=== PATIENT | female | born 1955 | race Caucasian/White ===

== ENCOUNTER → 2017-02-06 | Outpatient (CLI) | payer BC | LOC: MAMO 14:30 | DX: Z12.31 Encounter for screening mammogram for malignant neoplasm of breast (principal); Z85.3 Personal history of malignant neoplasm of breast | CPT/HCPCS: G0202 ==

== ENCOUNTER → 2020-07-30 | Outpatient (CLI) | payer BC ==
[~2020-07-30] MED LIST: FIBER TABLETS PO; LOSARTAN POTASS50 MG PO; METOPROLOL SUCC50 MG PO; SYNTHROID150 MCG PO; TOPROL XL 50 MG50 MG PO; VITAMIN D31250 MCG PO
== END ==
LOC: MAMO 07:40
DX: Z12.31 Encounter for screening mammogram for malignant neoplasm of breast (principal)
CPT/HCPCS: 77063; 77067

== ENCOUNTER → 2020-08-20 | Day surgery (SDC) | payer BC | END | disposition home or self-care (01) | LOC: OR 10:48 | PROVIDERS: Internal Medicine Gastroenterology | PROC: 0DBL8ZX Excision of Transverse Colon, Via Natural or Artificial Opening Endoscopic, Diagnostic (ICD-10-PCS; 2020-08-20) | PROC: 0DBP8ZX Excision of Rectum, Via Natural or Artificial Opening Endoscopic, Diagnostic (ICD-10-PCS; principal; 2020-08-20 12:00) | DX: K57.30 Diverticulosis of large intestine without perforation or abscess without bleeding (principal); D12.3 Benign neoplasm of transverse colon; K64.1 Second degree hemorrhoids; K62.1 Rectal polyp; K64.4 Residual hemorrhoidal skin tags; I10 Essential (primary) hypertension; E03.9 Hypothyroidism, unspecified; E66.01 Morbid (severe) obesity due to excess calories; Z68.38 Body mass index [BMI] 38.0-38.9, adult; Z88.0 Allergy status to penicillin; Z88.2 Allergy status to sulfonamides; Z79.899 Other long term (current) drug therapy; Z20.822 Contact with and (suspected) exposure to COVID-19 | CPT/HCPCS: J2704; J7040; U0003 ==

== ENCOUNTER 2021-02-06 17:12 | Emergency (ER) | payer BC ==
[~2021-02-06] VITALS: Ht 157.5 cm; Wt 99.8 kg
== END 2021-02-06 20:29 | disposition home or self-care (01) ==
LOC: ER1 17:12
DX: Z23 Encounter for immunization (principal); U07.1 COVID-19; E03.9 Hypothyroidism, unspecified; Z88.0 Allergy status to penicillin; Z88.1 Allergy status to other antibiotic agents
CPT/HCPCS: 99282; M0243

== ENCOUNTER → 2021-08-22 | Outpatient (CLI) | payer BC, MEDICARE ==
[~2021-08-22] VITALS: Ht 157.5 cm; Wt 99.8 kg
== END ==
LOC: EROP 12:00
DX: U07.1 COVID-19 (principal); I12.9 Hypertensive chronic kidney disease with stage 1 through stage 4 chronic kidney disease, or unspecified chronic kidney disease; N18.9 Chronic kidney disease, unspecified; Z23 Encounter for immunization; Z88.0 Allergy status to penicillin; Z88.2 Allergy status to sulfonamides
CPT/HCPCS: M0247; Q0247

== ENCOUNTER → 2021-09-07 | Outpatient (CLI) | payer BC, MEDICARE ==
[2021-09-07 14:09] LABS: HEMOGLOBIN 13.1 gm/dl (12.3-15.3); RED BLOOD COUNT 3.99 M/UL (4.00-5.10); WHITE BLOOD COUNT 8.5 K/UL (4.5-11.0)
[2021-09-08 11:17] LABS: CREATININE, URINE 36.8 mg/dL (Not Estab.); MICROALB/CREAT RATIO <8 (0-29)
[2021-09-08 12:11] LABS: ANTISTREPTOLYSIN O AB <20.0 IU/mL (0.0-200.0); RHEUMATOID ARTHRITIS FACTOR <10.0 IU/mL (<14.0)
[2021-09-08 15:12] LABS: CK-BB 0 % (0); CK-MB 0 % (0-3); CK-MM 100 % (97-100); MACRO TYPE 1 0 % (Not Observed); MACRO TYPE 2 0 % (Not Observed)
[2021-09-09 05:09] LABS: IMMUNOGLOBULIN G, QN, SERUM 1019 mg/dL (586-1602)
== END ==
LOC: LAB 13:17
PROVIDERS: Nurse Practitioner Family
DX: M25.50 Pain in unspecified joint (principal); E78.5 Hyperlipidemia, unspecified; R53.83 Other fatigue; Z00.00 Encounter for general adult medical examination without abnormal findings; I10 Essential (primary) hypertension; R06.02 Shortness of breath
CPT/HCPCS: 36415; 80053; 81001; 82043; 82550; 82552; 82570; 82784; 82787; 83880; 84484; 84550; 85025; 85379; 85652; 86038; 86060; 86140; 86403; 86431

== ENCOUNTER → 2021-09-09 | Outpatient (CLI) | payer BC, MEDICARE | LOC: MAMO 08-26 13:00 | DX: Z12.31 Encounter for screening mammogram for malignant neoplasm of breast (principal) | CPT/HCPCS: 77063; 77067 ==

== ENCOUNTER → 2021-09-19 | Outpatient (CLI) | payer BC, MEDICARE | LOC: CT 08:10 | DX: R06.02 Shortness of breath (principal); R79.89 Other specified abnormal findings of blood chemistry; J98.11 Atelectasis | CPT/HCPCS: 71275; Q9967 ==

== ENCOUNTER → 2021-10-07 | Outpatient (CLI) | payer BC, MEDICARE | LOC: HEART 5 09:17 | DX: U07.1 COVID-19 (principal); U09.9 Post COVID-19 condition, unspecified; R06.02 Shortness of breath | CPT/HCPCS: 94010; 94729 ==

== ENCOUNTER → 2021-10-14 | Outpatient (CLI) | payer BC, MEDICARE | LOC: ECHO 09-30 12:00 → NM 09-30 13:00 → ECHO 09:30 | DX: R06.02 Shortness of breath (principal); R60.0 Localized edema | CPT/HCPCS: ECHO; 78452; 93017; 93306; A9502 ==